=== PATIENT | male | born 1980 | race Caucasian/White ===

== ENCOUNTER → 2019-10-01 | Outpatient (CLI) | payer OTHER ==
--- NOTE | 2019-10-01 15:50 | Diagnostic Imaging Report ---
History: Low back pain, radiating to the left flank Comparison studies: None Technique: Sagittal, coronal and axial T2 , sagittal T1 and IR, axial spin density oblique. Intravenous contrast: None Findings: Number of lumbar vertebral bodies:5 Alignment: Normal lordosis.No scoliosis. Soft tissues: No T2 hyperintense inflammatory changes. Paraspinal muscles: No signal abnormalities. No atrophy. Lower thoracic cord:Normal in signal and morphology. The tip of the conus is at T12-L1. Cauda equina: No masses. No arachnoiditis. Vertebrae: Normal in height and signal intensity. No compression fractures, infection or neoplasm. Degenerative changes: L1-L2: Disc degeneration with loss of T2 signal. Left subarticular disc protrusion with obliteration of the ipsilateral subarticular recess, mild canal stenosis and patent foramina. Possible impingement of the descending left L2 nerve root. 2 mm synovial cyst at the posterior left facet joint. L2-L3: Disc degeneration with loss of T2 signal. Mild diffuse disc bulge with superimposed central annular fissure results in no significant canal stenosis or foraminal narrowing. Fluid at the bilateral facet joints. L3-L4: Disc degeneration with loss of T2 signal. Mild diffuse disc bulge with patent canal and foramina. L4-L5: Diffuse disc bulge and moderate facet hypertrophy results in no significant canal stenosis or foraminal narrowing. L5-S1: Disc degeneration with loss of T2 signal. Mild diffuse disc bulge without significant canal stenosis or foraminal narrowing. Additional findings: None IMPRESSION: Left subarticular disc protrusion at L1-L2 gyrus the ipsilateral subarticular recess, with possible impingement of the descending left L2 nerve root. Other degenerative changes as described above without significant (moderate or severe) canal stenosis or foraminal narrowing. Signed by: DR Jhoan Henry M.D. on 10/01/2019 3:46 PM
== END ==
LOC: MRI 14:07
PROVIDERS: ATTEND Family Medicine
DX: S39.012D Strain of muscle, fascia and tendon of lower back, subsequent encounter (principal)
CPT/HCPCS: 72148